=== PATIENT | male | born 1970 | race African-American/Black ===

== ENCOUNTER 2024-01-10 05:42 | Emergency (ER) | payer OTHER ==
[~2024-01-10] VITALS: Ht 332.7 cm; Wt 68.0 kg
[2024-01-10] MEDS: SODIUM CHLORIDE 0.9% 1,000 ML IV ONE (06:39)
[2024-01-10 06:47] LABS: BASOPHILS % 0.4 % (0.0-2.0); EOSINOPHILS % 0.3 % (0.0-5.0); HEMATOCRIT. 35.4 % (42.0-52.0); LYMPHOCYTES % 24.1 % (20.0-50.0); MEAN CORPUSCULAR HEMOGLOBIN 30.9 pg (28.0-32.0); MEAN CORPUSCULAR HGB CONC 33.9 g/dL (31.0-37.0); MEAN CORPUSCULAR VOLUME 91.1 fL (80.0-94.0); MEAN PLATELET VOLUME 7.1 fl (7.4-10.4); MONOCYTES % 8.4 % (2.0-8.0); NEUTROPHILS % 66.8 % (40.0-76.0); PLATELET 298 x1000/uL (130-400); RED BLOOD CELL COUNT 3.89 mill/uL (4.7-6.1); RED CELL DISTRIBUTION WIDTH 13.3 % (11.6-14.6); WHITE BLOOD COUNT 6.9 x1000/uL (4.5-11.0)
[2024-01-10 06:57] LABS: CHLORIDE 105 mEq/L (98-107); POTASSIUM 3.6 mEq/L (3.5-5.1); SODIUM 140 mEq/L (136-145)
[2024-01-10 06:58] LABS: CARBON DIOXIDE 28 mEq/L (21-32)
[2024-01-10 06:59] LABS: CALCIUM 8.7 mg/dL (8.7-10.4)
[2024-01-10 07:03] LABS: CREATININE 0.6 mg/dL (0.6-1.3); GLUCOSE 98 mg/dL (70-105)
[2024-01-10 07:04] LABS: UREA NITROGEN BLOOD 8 mg/dL (9-23)
[2024-01-10 07:22] LABS: TROPONIN I HIGH SENSITIVITY < 4 ng/L (3.0-53)
[2024-01-10 10:09] VITALS: TEMP 36.39180; O2SAT 98
[2024-01-10 10:12] VITALS: BP 125/102; PULSE 67; RESP 16; TEMP 97.5; O2SAT 98
== END 2024-01-10 10:10 | disposition short-term general hospital (02) ==
LOC: ER 06:14
DX: R53.1 Weakness (principal); R55 Syncope and collapse
CPT/HCPCS: 99285; 96360; 70450; 80048; 83880; 85025; 84484; 36415; 93005; J7030